=== PATIENT | female | born 1985 | race Caucasian/White ===

== ENCOUNTER 2017-06-29 12:54 | Emergency (ER) | payer OTHER ==
[2017-06-29 14:01] LABS: CHLORIDE,CL 103 mmol/L (98-107); SODIUM,NA 138 mmol/L (136-145)
--- NOTE | 2017-06-29 14:49 | EDM.PDOC ---
ED HPI GENERAL MEDICAL PROBLEM - General Chief Complaint: General Stated Complaint: ARM PAIN Time Seen by Provider: 06/29/17 13:18 Source of Information: Reports: Patient History Limitations: Reports: No Limitations - History of Present Illness INITIAL COMMENTS - FREE TEXT/NARRATIVE: Patient comes to ER complaining of dull continuous left sided neck and upper arm /shoulder discomfort that has been present for two days. Nothing specifically makes it better or worse. Also complains of chronic muscle discomfort in left scapular area and says that she frequently tried to use a foam roller yesterday on that area to improve discomfort but it did not help. Patient has history of intermittent neck discomfort and was placed on 4 day course of 20mg Prednisone June 09 to see if it would help the pain flare. Patient feels it did help. She also says that she has intermittent "racing heart" and was given Valium PRN for this. Adds that she was seen by Cardiology and no specific problem was identified. She adds that there was a theory mentioned that she may have a pinched nerve in her neck that sometimes is causing the racing heart. Also has Flexeril for PRN use. Pertinent negatives for history include no SOB, diaphoresis, chest pain, or nausea/emesis. Moving head/neck/arms does not affect her pain. No numbness/tingling/one sided weakness. Left Arm Pain Score (Numeric/FACES): 2 - Related Data Allergies Allergy/AdvReac Type Severity Reaction Status Date / Time No Known Allergies Allergy Verified 06/29/17 13:00 Home Meds: Home Meds Cyclobenzaprine [Flexeril] 10 mg PO BEDTIME PRN 06/29/17 [History] Diazepam [Valium] 5 mg PO BEDTIME PRN 06/29/17 [History] Past Medical History Musculoskeletal History: Reports: Fracture, Other (See Below) (chronic neck pain /left scapular discomfort) Psychiatric History: Reports: Other (See Below) (strongly suspect anxiety disorder however patient denies significant anxiety) Endocrine/Metabolic History: Reports: Obesity/BMI 30+ Hematologic History: Reports: Anemia - Infectious Disease History Infectious Disease History: Reports: Chicken Pox Social & Family History - Family History Cardiac: Reports: Hypertension, [place] (Uncle and Grandmother) Endocrine/Metabolic: Reports: Diabetes, type II Oncologic: Reports: Other (See Below) Other Oncologic Family History: Tumor in jaw of uncle - Recreational Drug Use Recreational Drug Use: No ED ROS GENERAL - Review of Systems Review Of Systems: See Below Constitutional: Reports: No Symptoms HEENT: Reports: No Symptoms Respiratory: Reports: No Symptoms. Denies: Shortness of Breath Cardiovascular: Reports: No Symptoms. Denies: Chest Pain, Lightheadedness, Palpitations GI/Abdominal: Reports: No Symptoms. Denies: Nausea, Vomiting : Reports: No Symptoms Musculoskeletal: Reports: Neck Pain, Shoulder Pain, Arm Pain, Back Pain. Denies : Muscle Stiffness Skin: Reports: No Symptoms Neurological: Reports: No Symptoms. Denies: Numbness, Paresthesia, Tingling, Tremors, Weakness Psychiatric: Reports: No Symptoms (denies) ED EXAM, GENERAL - Physical Exam Exam: See Below Exam Limited By: No Limitations General Appearance: Alert, WD/WN, No Apparent Distress Eye Exam: Bilateral Eye: EOMI, PERRL Ears: Normal External Exam Nose: Normal Inspection Throat/Mouth: Normal Inspection, Normal Lips, Normal Voice, No Airway Compromise Head: Atraumatic, Normocephalic Neck: Normal Inspection, Supple, Non-Tender, Full Range of Motion, Other ( unable to reproduce neck pain complaint with palpation of soft tissue). No: Tender Lateral, Tender Midline Respiratory/Chest: No Respiratory Distress, Lungs Clear, Normal Breath Sounds, No Accessory Muscle Use, Chest Non-Tender Cardiovascular: Normal Peripheral Pulses, Regular Rate, Rhythm, No Edema, No Murmur Peripheral Pulses: 2+: Radial (L), Radial (R) GI/Abdominal: Normal Bowel Sounds, Soft, Non-Tender, No Distention, No Mass (Female) Exam: Deferred Rectal (Female) Exam: Deferred Back Exam: Normal Inspection. No: CVA Tenderness (L), CVA Tenderness (R), Muscle Spasm, Paraspinal Tenderness, Vertebral Tenderness Extremities: Normal Inspection, Normal Range of Motion, Non-Tender, Normal Capillary Refill, Other (unable to reproduce shoulder/arm complaint with palpation of soft tissue) Neurological: Alert, Oriented, Normal Cognition Psychiatric: Other (Variable affect during stay, initially was anxious and easily tearful. ) Skin Exam: Warm, Dry, Intact, Normal Color EKG INTERPRETATION EKG Date: 06/29/17 Time: 13:25 Rhythm: NSR Rate (Beats/Min): 86 [place]: Normal P-Wave: Present QRS: Normal ST-T: Normal QT: Normal Comparison: No Change Course - Vital Signs Last Recorded V/S: Last Vital Signs Temp 37.0 C 06/29/17 12:55 Pulse 102 H 06/29/17 12:55 Resp 16 06/29/17 12:55 BP 124/84 06/29/17 12:55 Pulse Ox 100 06/29/17 12:55 - Orders/Labs/Meds Orders: Active Orders 24 hr Category Date Time Status EKG Documentation Completion [RC] ASDIRECTED Care 06/29/17 13:31 Active Chest 2V [CR] Stat Exams 06/29/17 13:19 Taken EKG 12 Lead [EK] Stat Ther 06/29/17 13:30 Ordered Labs: Laboratory Tests 06/29/17 06/29/17 06/29/17 Range/Units 13:30 13:30 13:30 WBC 7.5 (4.0-10.2) K/uL RBC 4.48 (3.77-5.09) M/uL Hgb 13.3 (11.7-15.5) g/dL Hct 38.8 (34.0-46.0) % MCV 86.6 (84.0-98.0) fL MCH 29.7 (28.2-33.3) pg MCHC 34.3 (31.7-36.0) g/dL RDW 13.2 (11.2-14.1) % Plt Count 238 (150-350) K/uL Neut % (Auto) 74.6 (45.0-80.0) % Lymph % (Auto) 12.6 (10.0-50.0) % [place] % (Auto) 7.8 (2.0-14.0) % Eos % (Auto) 4.7 (0.0-5.0) % Baso % (Auto) 0.3 (0.0-2.0) % Neut # (Auto) 5.59 (1.40-7.00) K/uL Lymph # (Auto) 0.94 (0.50-3.50) K/uL [place] # (Auto) 0.58 (0.00-1.00) K/uL Eos # (Auto) 0.35 (0.00-0.50) K/uL Baso # (Auto) 0.02 (0.00-0.20) K/uL D-Dimer, Quantitative 240 (0-400) ng/mL Sodium 138 (136-145) mmol/L Potassium 3.9 (3.5-5.1) mmol/L Chloride 103 (98-107) mmol/L Carbon Dioxide 27.7 (21.0-32.0) mmol/L BUN 16 (7-18) mg/dL Creatinine 0.72 (0.51-1.17) mg/dL Est Cr Clr Drug Dosing 95.97 mL/min Estimated GFR (MDRD) > 60 mL/min Glucose 104 (74-106) mg/dL Calcium 8.9 (8.5-10.1) mg/dL Total Bilirubin 0.7 (0.2-1.0) mg/dL AST 25 (15-37) U/L ALT 27 (12-78) U/L Alkaline Phosphatase 53 (46-116) IU/L Creatine Kinase 55 (26-308) U/L Creatine Kinase Index 1.6 (0.0-2.5) % CK-MB (CK-2) 0.90 (0.00-3.60) ng/mL Troponin I 0.000 (0.000-0.056) ng/mL Total Protein 8.2 (6.4-8.2) g/dL Albumin 4.0 (3.4-5.0) g/dL Meds: Medications Discontinued Medications Generic Name Dose Route Start Last Admin Trade Name Freq PRN Reason Stop Dose Admin Ketorolac Tromethamine 10 mg 06/29/17 14:53 Toradol PO 06/29/17 14:54 ONETIME ONE Prednisone 40 mg 06/29/17 14:52 Prednisone PO 06/29/17 14:53 ONETIME ONE - Radiology Interpretation Free Text/Narrative:: Chest film unremarkable for acute changes. - Re-Assessments/Exams Free Text/Narrative Re-Assessment/Exam: Unremarkable physical exam/no focal findings. Patient appeared to be most concerned that cardiac pathology be rule out. Admitted to worrying about possible heart attack or other heart abnormality as she was aware that MIs can present with shoulder pain. She did have one uncle and one grandmother that suffered heart attacks. She was extraordinarily anxious when she first came in and was frequently tearful. She denied having a problem with chronic anxiety. It is noted that she was given a prescription by her provider for Valium to take as needed for a racing heart. Work up included EKG, chest film, CBC/Chem/Troponin/CKMB/DDimer. All labs were within normal limits. Patient was reassured that this did not appear to be a cardiac issue. Test results and all pertinent negatives were reviewed with her prior to discharge. She was much more relaxed at time of discharge. She will be following up with her primary provider in regard to the neck/shoulder as well as heart rate issue. Single dose of Prednisone and Toradol given prior to discharge to see if this would improve her neck/shoulder complaint for the next few days. Departure - Departure Time of Disposition: 14:49 Disposition: Home, Self-Care 01 Condition: Good Clinical Impression: Neck pain on left side, Left upper arm pain - Discharge Information Referrals: Theresa Lujan NP [Primary Care Provider] - Forms: ED Department Discharge Additional Instructions: [place] up with [facility] [place] workup for neck issues and intermittent elevated heart rate. Consider elimination diet to see if health issues improve with dietary change. Follow up otherwise as needed if there are problems. - My Orders Last 24 Hours: My Active Orders 06/29/17 13:19 Chest 2V [CR] Stat 06/29/17 13:30 EKG 12 Lead [EK] Stat 06/29/17 13:31 EKG Documentation Completion [RC] ASDIRECTED - Assessment/Plan Last 24 Hours: My Active Orders 06/29/17 13:19 Chest 2V [CR] Stat 06/29/17 13:30 EKG 12 Lead [EK] Stat 06/29/17 13:31 EKG Documentation Completion [RC] ASDIRECTED
[2017-06-29] MEDS ORDERED: predniSONE 20 MG Tab PO ONE (14:52)
[2017-06-29] MEDS ORDERED: Ketorolac 10 MG Tab PO ONE (14:53)
[2017-06-29 16:51] VITALS: BP 106/66
== END 2017-06-29 15:23 | disposition home or self-care (01) ==
LOC: LL.ED 12:54
DX: M54.2 Cervicalgia (principal); M79.622 Pain in left upper arm
CPT/HCPCS: 36415; 71046; 80053; 82550; 82553; 84484; 85025; 85379; 93005; 99284; A9270